=== PATIENT | male | born 1975 | race Caucasian/White ===

== ENCOUNTER 2021-02-25 19:35 | Emergency (ER) | payer OTHER, SELFPAY ==
[2021-02-25 19:47] VITALS: BP 138/74; PULSE 92; RESP 18; TEMP 37.2; O2SAT 99
--- NOTE | 2021-02-25 19:57 | ED.EYEPROB ---
HPI - Eye Problem General Chief complaint: Eye Problems Stated complaint: swollen right eye Time Seen by Provider: 02/25/21 19:57 Source: patient Mode of arrival: ambulatory Limitations: no limitations History of Present Illness HPI Narrative: Hai Duarte is a 46 yo male with no PMH who comes to [facility] with right eyelid swelling that started day before yesterday when he tried to get by insect of some sort underneath his eye. He went to an general assignment reporter yesterday who started him on Augmentin 3 times daily plus polymyxin eyedrops. He comes here today because he says the swelling in his eye is increasing 1 to make sure that the eye doctor did not miss anything. I mentioned that if the swelling continued that he should really go to the ER he said he is already had a slit-lamp exam and full dye exam examination yesterday by an general assignment reporter He is a smoker Related Data Home Medications Medication Instructions Recorded Confirmed amoxicillin-pot clavulanate 500 tablet PO TID 02/25/21 02/25/21 gabapentin 300 mg PO PRN PRN 02/25/21 02/25/21 neomycin-polymyxin B-dexameth 1 drp RIGHT EYE TID 02/25/21 02/25/21 Allergies Allergy/AdvReac Type Severity Reaction Status Date / Time No Known Allergies Allergy Mild Verified 11/12/08 15:56 Review of Systems Review of Systems: Narrative: CONSTITUTIONAL: Denies fever, chills, sweats. EYES: Denies visual changes, redness, discharge. ENT: Denies rhinorrhea, congestion, sore throat, otalgia. CARDIOVASCULAR: Denies chest pain, palpitations, edema. RESPIRATORY: Denies dyspnea, wheezing, cough GASTROINTESTINAL: Denies abdominal pain, nausea, vomiting, diarrhea. GENITOURINARY: Denies dysuria, hematuria, abnormal discharge SKIN: Denies rash or itching. Swelling around his eye being treated for cellulitis and wanted a second opinion on whether it look like cellulitis NEUROLOGIC: Denies numbness, or focal weakness. PSYCHIATRIC: Denies anxiety or depression. [facility] Past Medical History Medical History (Updated 02/25/21 @ 20:06 by Renee Rock CNP) No acute medical problems Social History Social History (Updated 02/25/21 @ 20:00 by Renee Rock CNP) Smoking packs per day: 1 Smoking cigarettes per day: 20.0 Smoking status: Current every day smoker Gender identity (if verbalized by the patient): Male Comments At time of signature, I agree with nursing past medical, surgical, social and family history. There is no relevant family history pertinent to the presenting complaint. Exam Narrative: Exam Narrative: GENERAL: This is a well-nourished, well-developed patient, in mild distress. HEAD: normocephalic, atraumatic. EYES:. Sclera clear/white. Vision is grossly intact. Eyelid appears swollen as well as area under eye, eyes not injected-states that eyelid is swollen more since this afternoon-no induration EARS: External ears normal. Hearing grossly intact. NOSE: External nose normal without nasal discharge, nares without redness, no rhinorrhea. THROAT: Mucous membranes moist, NECK: Neck supple, non-tender CARDIOVASCULAR: Regular rate and rhythm without murmurs, gallops, or rubs. RESPIRATORY: Clear to auscultation. Breath sounds equal bilaterally. No wheezes, rales, or rhonchi. GASTROINTESTINAL: Abdomen soft, SKIN: warm, intact with no suspicious lesions or rash, good texture and turgor. NEURO: awake, alert, and oriented to person, place and time. There were no obvious focal neurologic abnormalities. Steady gait EXTREMITIES: Normal range of motion. BACK: Nontender without deformity Course Course Emergency Course: Patient came to urgent [facility] to get second opinion on his general assignment reporter from yesterday who started him on Augmentin 3 times a day plus polymyxin eyedrops after a thorough eye exam Patient has moderate swelling of eyelid there is mild redness, no induration Continue antibiotics and eyedrops Added Medrol dose pack Use ice for decrease swelling I
== END 2021-02-25 20:12 | disposition home or self-care (01) ==
PROVIDERS: Emergency Provider Nurse Practitioner; PCP Internal Medicine
DX: H05.011 Cellulitis of right orbit (principal); F17.210 Nicotine dependence, cigarettes, uncomplicated; G25.81 Restless legs syndrome
CPT/HCPCS: 99213; G0463